=== PATIENT | male | born 1955 | race Caucasian/White ===

== ENCOUNTER 2022-08-28 10:33 | Emergency (ER) | payer OTHER, SELFPAY ==
--- OUTSIDE RECORDS SUMMARY | 2022-08-28 10:37 | XMS REPORT | Continuity of Care Document ---
:1955 Author Organization [facility] t Address [address] [place] [address] Care Team Providers Name Role Phone PCP, PATIENT DOES NOT HAVE A Primary Care Physician Unavaila Rossana Chao DO Attending Clinician Vinod MCKEON, Cameron Mitchell Attending Clinician Karen MCKEON, Clarissa Mcnamara Attending Clinician [phone] Kala MCKEON, Cipriano Velazco Attending Clinician [phone] López MCKEON, Car Wisdom Attending Clinician Tito MCKEON, Alex Attending Clinician Kimberley Gomes MA Attending Clinician Unavailable Rojas MCKEON, Jorge Frank Attending Clinician Laura Attending Clinician Unavailable Mustapha GOETZ, Sarah Attending Clinician Unavailable MASON EDMOND Attending Clinician Unavailable Only, Meng [facility] Test Attending Clinician Unavailable Unknown, Attending Attending Clinician Unavailable Doctor Unassigned, [place] Attending Clinician Unavailable JOSE CHRISTIANSON Attending Clinician Unavailable CLARISSA JONES Admitting Clinician Unavailable Laura Admitting Clinician Unavailable Payers Payer Name Policy Type Policy Number Effective Date Expiration Date S ource [place]: [id number] 2020 [employer] 00:00:00 ALLEGIANCE BENEFIT [id number] PLAN MGMT - FIRST INTERSTATE CLAIMS (PPO) MEDICARE PART A \T\ [id number] 2020 B 00:00:00 [place] [id number] 2014 (PPO) 00:00:00 Problems Condition Condition Condition Status Onset Resolution Last Treating Co mments Source Name Details Category Date Date Treatment Clinician Date Lower GI Lower GI Disease Active [facility] di bleed bleed 7-05 st 00:00: Hospita 00 l Benign Benign Problem Active [facility] prostatic Prostatic 3-16 Fami ly hyperplasi Hyperplasi 00:00: Pr actic a without a without 00 e outflow Outflow obstructio Obstructio n n Arthritis Arthritis Disease Active 2016-02 [facility] of knee, of knee, 2-12 st left left 00:00: Hospita 00 l Arthritis Arthritis Disease Active 2016-02 [facility]odi of knee, of knee, 2-12 st right right 00:00: Hospita 00 l 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-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 00:00: Hospita patellae patellae 00 l Diverticul Diverticul Disease Active 2015-02 M ethodi osis of osis of 1-16 st large large 00:00: Hospita intestine intestine 00 l without without hemorrhage hemorrhage 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 st Hospita l Colon Colon Disease Active [facility]i polyp polyp st Hospita l GERD GERD Disease Active Methodi (gastroeso (gastroeso st phageal phageal Hospita reflux reflux l disease) disease) Diverticul Diverticul Disease Active M ethodi itis of itis of st colon colon Hospita l Hiatal Hiatal Disease Active Methodi hernia hernia st Hospita l Diarrhea Diarrhea Disease Active Metho di [facility] Hospita l Allergies, Adverse Reactions, Alerts Allergy Allergy Status Severity Reaction(s) Onset Inactive Treating Comm ents Source Name Type Date Date Clinician NO KNOWN Drug Active Univers ALLERGIE Class ity of S [facility] Family History Family Member Diagnosis Comments Start Date Stop Date Source Natural father COPD [facility] Natural mother [facility] Social History Social Habit Start Date Stop Date Quantity Comments Source History of tobacco Current smoker [facility] Gender identity [facility] Sexual orientation [facility] Hospital Exposure to Yes University of SARS-CoV-2 (event) [facility] Alcohol intake 2022-08-26 2022-08-26 Current drinker [facility] 00:00:00 00:00:00 of alcohol Hospital (finding) History of Social 2022-08-26 2022-08-[address] function 00:00:00 00:00:00 Hospital Tobacco use and 2017-11-23 2017-11-23 Former smokeless Met [facility]ist exposure 00:00:00 00:00:00 tobacco user Hospital Sex Assigned At [birth year] [facility] 00:00:00 [facility]:00 Hospital Smoking Status Start Date Stop Date Source Never Smoker [facility] Family P jaquelin Unknown if ever smoked [facility] Ex-smoker 2017-11-23 00:00:00 2017-11-23 00:00:00 [facility] Medications Ordered Filled Start Stop Current Ordering Indication Dosage Frequency Signature Comments Components Source Medication Medication Date Date Medication? Clinician (SIG) Name Name ondansetron 2022- Yes 4mg Q8H Take 1 Met hodi (Zofran) 4 08-26 tablet (4 st MG tablet 00:00: 04:59 mg total) Ho spita 00 :00 by mouth l every 8 (eight) hours as needed for nausea or vomiting for up to 30 days. No known 2020-02 No Univers medications 2-20 ity of 17:29: [address] No known 2020-02 No Univers medications 2-20 ity of 17:29: [address] omeprazole 2017-02 Yes 40mg QD Take 1 Metho di (PriLOSEC) 0-[address] 40 MG 00:00: (40 mg Hospita capsule 00 total) by l mouth daily. triamcinolo triamcinolo No triamcinol Village ne ne one Family acetonide acetonide acetonide Practic 0.1 % 0.1 % 0.1 % e topical topical topical cream APPLY cream APPLY cream A THIN A THIN APPLY A LAYER TO LAYER TO THIN LAYER THE THE TO THE AFFECTED AFFECTED AFFECTED AREA(S) BY AREA(S) BY AREA(S) BY TOPICAL TOPICAL TOPICAL ROUTE 2 ROUTE 2 ROUTE 2 TIMES PER TIMES PER TIMES PER DAY DAY DAY Immunizations Ordered Immunization Filled Immunization Date Status Commen ts Source Name Name pneumococcal pneumococcal 2021-02-25 Completed [facility] Fa aislinn polysaccharide PPV23 polysaccharide PPV23 14:31:00 Practice pneumococcal pneumococcal 2021-02-25 Completed [facility] Fa aislinn polysaccharide PPV23 polysaccharide PPV23 14:31:00 Practice pneumococcal pneumococcal 2021-02-25 Completed [facility] Fa aislinn polysaccharide PPV23 polysaccharide PPV23 14:31:00 Practice pneumococcal pneumococcal 2021-02-25 [facility] PPV23 polysaccharide PPV23 14:31:00 Practice pneumococcal pneumococcal 2021-02-25 Completed [facility] Fa aislinn polysaccharide PPV23 polysaccharide PPV23 14:31:00 Practice Pneumococcal 2021-02-25 Completed [facility] Polysaccharide 00:00:00 [facility] COVID-19, mRNA, COVID-19, mRNA, 2020-05-21 Completed Vill age Family LNP-S, PF, 30 mcg/0.3 LNP-S, PF, 30 00:00:00 Practice mL dose mcg/0.3 mL dose (Pfizer-BioNTech) (Pfizer-BioNTech) COVID-19, mRNA, COVID-19, mRNA, 2020-05-19 Completed Vill age Family LNP-S, PF, 30 mcg/0.3 LNP-S, PF, 30 00:00:00 Practice mL dose mcg/0.3 mL dose (Pfizer-BioNTech) - (Pfizer-BioNTech) - ML ML COVID-19, mRNA, COVID-19, mRNA, 2020-05-19 Completed Vill age Family LNP-S, PF, 30 mcg/0.3 LNP-S, PF, 30 00:00:00 Practice mL dose mcg/0.3 mL dose (Pfizer-BioNTech) - (Pfizer-BioNTech) - ML ML COVID-19, mRNA, COVID-19, mRNA, 2020-05-19 Completed Vill age Family LNP-S, PF, 30 mcg/0.3 LNP-S, PF, 30 00:00:00 Practice mL dose mcg/0.3 mL dose (Pfizer-BioNTech) - (Pfizer-BioNTech) - ML ML COVID-19, mRNA, COVID-19, mRNA, 2020-05-19 Completed [facility] Family LNP-S, PF, 30 mcg/0.3 LNP-S, PF, 30 00:00:00 Practice mL dose mcg/0.3 mL dose (Pfizer-BioNTech) - (Pfizer-BioNTech) - ML ML PFIZER COVID-19 MRNA 2020-05-19 Completed [facility] VACCINATION 00:00:00 Hospital COVID-19, mRNA, COVID-19, mRNA, 2020-04-28 Completed [facility] Family LNP-S, PF, 30 mcg/0.3 LNP-S, PF, 30 00:00:00 Practice mL dose mcg/0.3 mL dose (Pfizer-BioNTech) - (Pfizer-BioNTech) - ML ML COVID-19, mRNA, COVID-19, mRNA, 2020-04-28 Completed [facility] Family LNP-S, PF, 30 mcg/0.3 LNP-S, PF, 30 00:00:00 Practice mL dose mcg/0.3 mL dose (Pfizer-BioNTech) - (Pfizer-BioNTech) - ML ML COVID-19, mRNA, COVID-19, mRNA, 2020-04-28 Completed Vill age Family LNP-S, PF, 30 mcg/0.3 LNP-S, PF, 30 00:00:00 Practice mL dose mcg/0.3 mL dose (Pfizer-BioNTech) - (Pfizer-BioNTech) - ML ML COVID-19, mRNA, COVID-19, mRNA, 2020-04-28 Completed [facility] Family LNP-S, PF, 30 mcg/0.3 LNP-S, PF, 30 00:00:00 Practice mL dose mcg/0.3 mL dose (Pfizer-BioNTech) - (Pfizer-BioNTech) - ML ML PFIZER COVID-19 MRNA 2020-04-28 Completed Meth odist VACCINATION 00:00:00 Hospital COVID-19, mRNA, COVID-19, mRNA, 2020-04-20 Completed Vill age Family LNP-S, PF, 30 mcg/0.3 LNP-S, PF, 30 00:00:00 Practice mL dose mcg/0.3 mL dose (Pfizer-BioNTech) (Pfizer-BioNTech) influenza, high-dose, influenza, 2020-01-31 Completed [facility] Family quadrivalent high-dose, 00:00:00 Practice quadrivalent influenza, high-dose, influenza, 2020-01-31 Completed [facility] quadrivalent high-dose, 00:00:00 Practice quadrivalent influenza, high-dose, influenza, 2020-01-31 Completed [facility] Family quadrivalent high-dose, 00:00:00 Practice quadrivalent influenza, high-dose, influenza, 2020-01-31 Completed [facility] quadrivalent high-dose, 00:00:00 Practice quadrivalent influenza, high-dose, influenza, 2020-01-31 Completed [facility] Family quadrivalent high-dose, 00:00:00 Practice quadrivalent influenza, seasonal, influenza, seasonal, 2019-01-25 Completed [facility] injectable injectable 00:00:00 Practice influenza, seasonal, influenza, seasonal, 2019-01-25 Completed [facility] injectable injectable 00:00:00 Practice influenza, seasonal, influenza, seasonal, 2019-01-25 Completed [facility] injectable injectable 00:00:00 Practice influenza, seasonal, influenza, seasonal, 2019-01-25 Completed [facility] injectable injectable 00:00:00 Practice influenza, seasonal, influenza, seasonal, 2019-01-25 Completed [facility] injectable injectable 00:00:00 Practice influenza, seasonal, influenza, seasonal, 2017-01-06 Completed [facility] injectable injectable 00:00:00 Practice influenza, seasonal, influenza, seasonal, 2017-01-06 Completed [facility] injectable injectable 00:00:00 Practice influenza, seasonal, influenza, seasonal, 2017-01-06 Completed [facility] injectable injectable 00:00:00 Practice influenza, seasonal, influenza, seasonal, 2017-01-06 Completed [facility] injectable injectable 00:00:00 Practice influenza, seasonal, influenza, seasonal, 2017-01-06 Completed [facility] injectable injectable 00:00:00 Practice influenza, seasonal, influenza, seasonal, 2015-12-10 Completed [facility] injectable injectable 00:00:00 Practice influenza, seasonal, influenza, seasonal, 2015-12-10 Completed [facility] injectable injectable 00:00:00 Practice influenza, seasonal, influenza, seasonal, 2015-12-10 Completed [facility] injectable injectable 00:00:00 Practice influenza, seasonal, influenza, seasonal, 2015-12-10 Completed [facility] injectable injectable 00:00:00 Practice influenza, seasonal, influenza, seasonal, 2015-12-10 Completed [facility] injectable injectable 00:00:00 Practice influenza, seasonal, influenza, seasonal, 2014-11-27 Completed [facility] injectable injectable 00:00:00 Practice influenza, seasonal, influenza, seasonal, 2014-11-27 Completed [facility] injectable injectable 00:00:00 Practice influenza, seasonal, influenza, seasonal, 2014-11-27 Completed [facility] injectable injectable 00:00:00 Practice influenza, seasonal, influenza, seasonal, 2014-11-27 Completed [facility] injectable injectable 00:00:00 Practice influenza, seasonal, influenza, seasonal, 2014-11-27 Completed [facility] injectable injectable 00:00:00 Practice influenza, seasonal, influenza, seasonal, 2013-11-28 Completed [facility] injectable injectable 00:00:00 Practice Tdap Tdap 2013-11-28 Completed [facility] 00:00:00 Practice influenza, seasonal, influenza, seasonal, 2013-11-28 Completed [facility] injectable injectable 00:00:00 Practice Tdap Tdap 2013-11-28 Completed [facility] 00:00:00 Practice influenza, seasonal, influenza, seasonal, 2013-11-28 Completed [facility] injectable injectable 00:00:00 Practice Tdap Tdap 2013-11-28 Completed [facility] 00:00:00 Practice influenza, seasonal, influenza, seasonal, 2013-11-28 Completed [facility] injectable injectable 00:00:00 Practice Tdap Tdap 2013-11-28 Completed [facility] 00:00:00 Practice influenza, seasonal, influenza, seasonal, 2013-11-28 Completed [facility] injectable injectable 00:00:00 Practice Tdap Tdap 2013-11-28 Completed [facility] 00:00:00 Practice zoster live zoster live 2012-11-16 Completed [facility] F[facility] ly 00:00:00 Practice zoster live zoster live 2012-11-16 Completed [facility] Fami ly 00:00:00 Practice zoster live zoster live 2012-11-16 Completed [facility] Fami ly 00:00:00 Practice zoster live zoster live 2012-11-16 Completed [facility] Fami ly 00:00:00 Practice zoster live zoster live 2012-11-16 Completed [facility] Fami ly 00:00:00 Practice Vital Signs Vital Name Observation Time Observation Value Comments Source BP Diastolic 2022-05-11 00:00:00 82 mm[Hg] [facility] Practice Height 2022-05-11 00:00:00 68 [in_i] [facility] Practice BMI (Body Mass 2022-05-11 00:00:00 28 kg/m2 [facility] Family Index) Practice BP Systolic 2022-05-11 00:00:00 136 mm[Hg] [facility] Body Weight 2022-05-11 00:00:00 184 [lb_av] [facility] Practice BP Diastolic 2021-02-25 00:00:00 72 mm[Hg] [facility] Practice Height 2021-02-25 00:00:00 68 [in_i] [facility] Practice BMI (Body Mass 2021-02-25 00:00:00 28 kg/m2 [facility] e Family Index) Practice BP Systolic 2021-02-25 00:00:00 116 mm[Hg] [facility] Practice Body Weight 2021-02-25 00:00:00 184 [lb_av] [facility] Practice BP Diastolic 2021-02-18 00:00:00 72 mm[Hg] [facility] Practice Height 2021-02-18 00:00:00 68 [in_i] [facility] Practice BMI (Body Mass 2021-02-18 00:00:00 26.7 kg/m2 [facility] e Family Index) Practice BP Systolic 2021-02-18 00:00:00 124 mm[Hg] [facility] Body Weight 2021-02-18 00:00:00 175.4 [lb_av] [facility] Practice Systolic blood 2022-08-26 20:46:09 119 mm[Hg] [facility] pressure Diastolic blood 2022-08-26 20:46:09 66 mm[Hg] [facility] pressure Heart rate 2022-08-26 20:46:09 61 /min [facility] Body temperature 2022-08-26 20:46:09 36.06 Bettie [facility] Respiratory rate 2022-08-26 20:46:09 18 /min [facility] Oxygen saturation in 2022-08-26 20:46:09 98 /min [facility] Arterial blood by Pulse oximetry Body weight 2022-08-25 02:02:07 80.015 kg [facility] BMI 2022-08-25 02:02:07 26.82 kg/m2 [facility] Body height 2022-08-22 19:12:00 172.7 cm [facility] Procedures Procedure Date / Time Performing Clinician Source Performed POC GLUCOSE 2022-08-26 22:29:00 Clarissa Jones [facility] N. HEMOGLOBIN & HEMATOCRIT 2022-08-26 21:34:00 [facility] N. HEMOGLOBIN & HEMATOCRIT 2022-08-26 14:12:00 [facility] N. POC GLUCOSE 2022-08-26 13:29:00 [facility] N. POC GLUCOSE 2022-08-26 09:21:00 [facility] N. CBC WITH PLATELET AND 2022-08-26 08:23:00 [facility] DIFFERENTIAL N. BASIC METABOLIC PANEL 2022-08-26 08:23:00 [facility] N. ESTIMATED GFR 2022-08-26 08:23:00 [facility] N. HEMOGLOBIN & HEMATOCRIT 2022-08-26 05:08:00 [facility] N. POC GLUCOSE 2022-08-26 04:11:00 [facility] N. HEMOGLOBIN & HEMATOCRIT 2022-08-25 22:37:00 [facility] N. POC GLUCOSE 2022-08-25 22:04:00 [facility] N. POC GLUCOSE 2022-08-25 17:24:00 [facility] N. HEMOGLOBIN & HEMATOCRIT 2022-08-25 15:57:00 [facility] N. POC GLUCOSE 2022-08-25 14:05:00 [facility] N. POC GLUCOSE 2022-08-25 09:16:00 [facility] N. CBC WITH PLATELET AND 2022-08-25 09:08:00 [facility] DIFFERENTIAL N. BASIC METABOLIC PANEL 2022-08-25 09:08:00 [facility] N. ESTIMATED GFR 2022-08-25 09:08[facility] P[facility]SE 2022-08-25 06:17:00 [facility] N. POC GLUCOSE 2022-08-25 03:36:00 [facility] N. CBC WITH PLATELET AND 2022-08-25 02:46:00 [facility] DIFFERENTIAL N. COMPREHENSIVE METABOLIC 2022-08-24 19:44:00 [facility] PANEL CBC WITH PLATELET AND 2022-08-24 19:44:00 [facility] DIFFERENTIAL TYPE AND SCREEN 2022-08-24 19:44:00 [facility] spital ESTIMATED GFR 2022-08-24 19:44:00 [facility] spital CTA ABD/PEL FOR BLEEDING 2022-08-22 23:53:29 [facility] ABO AND RH CONFIRMATION 2022-08-22 23:38:00 [facility] BY PROTOCOL PROTHROMBIN TIME WITH INR 2022-08-22 21:07:00 [facility] PARTIAL THROMBOPLASTIN 2022-08-22 21:07:00 [facility] TIME (PTT) ECG 12-LEAD 2022-08-22 20:52:43 [facility] URINE CULTURE 2022-08-22 19:56:00 LoveChristopher machado [facility] CBC WITH PLATELET AND 2022-08-22 19:56:00 Christopher Love [facility] DIFFERENTIAL COMPREHENSIVE METABOLIC 2022-08-22 19:56:00 LoveChristopher hoyos [facility] PANEL LIPASE LEVEL 2022-08-22 19:56:00 [facility] URINALYSIS SCREEN AND 2022-08-22 19:56:00 Christopher Love [facility] MICROSCOPY, WITH REFLEX TO CULTURE TYPE AND SCREEN 2022-08-22 19:56:00 LoveChristopher hoyos [facility] ESTIMATED GFR 2022-08-22 19:56:00 Christopher Love [facility] ECG ED PRELIMINARY 2022-08-22 19:42:52 Jorge Xie [facility] INTERPRETATION Plan of Care Planned Activity Planned Date Details Comments Source Future Scheduled Test 2022-08-26 Screening for [facility] 09:51:53 malignant neoplasm of Hospit al colon (procedure) [code = 175559050] Future Scheduled Test 2022-08-26 Screening for [facility] 09:51:53 malignant neoplasm of Hospit al colon (procedure) [code = 756487296] Future Scheduled Test 2022-08-26 Screening for [facility] 09:51:53 malignant neoplasm of Hospit al colon (procedure) [code = 913418625] Future Scheduled Test 2022-08-26 Hepatitis C screening [facility] 09:51:53 (procedure) [code = Hospital 577068419] Future Scheduled Test 2022-08-26 Screening for [facility] 09:51:53 malignant neoplasm of Hospit al colon (procedure) [code = 786801289] Future Scheduled Test 2022-08-26 Screening for [facility] 09:51:53 malignant neoplasm of Hospit al colon (procedure) [code = 361704324] Future Scheduled Test 2022-08-26 SHINGLES VACCINES (2 [facility] 09:51:53 of 3) [code = SHINGLES Hospi julio VACCINES (2 of 3)] Future Scheduled Test 2022-08-26 COVID-19 VACCINE (3 - [facility] 09:51:53 Pfizer series) [code = Hospi julio COVID-19 VACCINE (3 - Pfizer series)] Future Scheduled Test 2022-08-26 65+ PNEUMOCOCCAL [facility] 09:51:53 VACCINE (2 - PCV) Hospital [code = 65+ PNEUMOCOCCAL VACCINE (2 - PCV)] Future Scheduled Test 2022-08-26 INFLUENZA VACCINE M ethodist 09:51:53 [code = INFLUENZA Hospital VACCINE] Diagnostic Test 2022-05-11 CMP, serum or plasma [facility] Family Pending 00:00:00 [code = CMP, serum or Practi ce plasma] Diagnostic Test 2022-05-11 CBC w/ auto diff [code Vi llage Family Pending 00:00:00 = CBC w/ auto diff] Practice Diagnostic Test 2022-05-11 lipid panel, serum Villag e Family Pending 00:00:00 [code = lipid panel, Practic e serum] Diagnostic Test 2022-05-11 PSA, serum or plasma [facility] Family Pending 00:00:00 [code = PSA, serum or Practi ce plasma] Diagnostic Test 2022-05-11 urinalysis, complete [facility] Family Pending 00:00:00 [code = urinalysis, Practice complete] Diagnostic Test 2022-05-11 erythrocyte [facility] Fami ly Pending 00:00:00 sedimentation rate by Practi ce westergren method [code = erythrocyte sedimentation rate by westergren method] Future Appointment 2023-05-12 Asim Hearn, [address] [facility] 00:00:00 [address] [place] [address] [address]; Practice [address], [place] [address] Instructions [facility] Practice Encounters Start End Encounter Admission Attending Care Care Encounter Source Date/Time Date/Time Type Type Clinicians Facility Department ID 2022-08-24 2022-08-26 Emergency Rossana Pérez [id number] Methodi 13:50:00 19:48:00 Cameron Brock [id number] 0 50 Clarissa Jones 3.430.2.7 Hospita .3.830177 l .8 2022-08-26 2022-08-26 Surgery Kala, 1.2.840.1 [id number] Methodi 10:00:00 11:00:00 Cipriano [id number] [address] [facility] 3.430.2.7 Hospit a .3.079367 l .8 2022-08-26 2022-08-26 Anesthesia Dawn, 1.2.840.1 [id number] Methodi 09:54:00 10:41:00 Event Car Wisdom [id number] 3.430.2.7 Hospit a .3.680279 l .8 2022-08-24 2022-08-26 Outpatient KAREN [facility] [id number] [place] 00:00:00 00:00:00 CHINONYEREM [address] 2022-08-24 2022-08-24 Orders Tito, 1.2.840.1 [id number] Methodi 00:00:00 00:00:00 Only Alex [address]62.1.[address] 3.430.2.7 Hospit a .3.157886 l .8 2022-08-24 2022-08-24 Telephone Eliseo, 1.2.840.1 [id number] Methodi 00:00:00 00:00:[address] 3.430.2.7 Hospit a .3.780442 l .8 2022-08-22 2022-08-22 Emergency Xie, 1.2.840.1 [id number] Methodi 14:13:00 20:13:[id number] Zac 3.430.2.7 Hospit a .3.090570 l .8 2022-08-22 2022-08-22 Emergency [facility] [id number] [place] [address] 00:00:00 00:00:[address] JORGE [address] 2022-07-12 2022-07-12 Outpatient Nief[facility]_S_ VFP VFP [id number] 00:00:00 00:00:00 RENUKA [id number] Family Practic e 2022-05-11 2022-05-11 Outpatient Nief[place]_S VFP VFP [address] 00:00:00 00:00:00 [id number] Family Practic e 2022-05-11 2022-05-11 Asim VFP [place] - [id number] V illage 00:00:00 00:00:00 Gerald [facility], Medical - Prac tic : [address] [place] - [place] [address] [place] [address] maribel French In [address], [place] [address] , Ph. 2021-07-14 2021-07-14 Outpatient [place]ief[place]_S VFP VFP [address] 00:00:00 00:00:00 [id number] Family Practic e 2021-07-14 2021-07-14 Outpatient Niefield_S VFP VFP 1617 913-20 [facility] 00:00:00 00:00:00 [id number] Family Practic e 2021-03-25 2021-03-25 Outpatient Nief[place]_S VFP VFP 1617 913-20 [facility] 01:07:00 01:07:00 [id number] Family Practic e 2021-03-04 2021-03-04 Outpatient Nief[place]_S VFP VFP 1617 913-20 [facility] 12:48:00 12:48:00 [id number] Family Practic e 2021-03-01 2021-03-01 Outpatient Nief[place]_S VFP VFP [id number] [id number] [facility] 05:23:00 05:23:00 [id number] Family Practic e 2021-03-01 2021-03-01 Outpatient Nief[place]_S VFP VFP [id number] [id number] [facility] 05:23:00 05:23:00 [id number] Family Practic e 2021-02-25 2021-02-25 Outpatient Nief[place]_S VFP VFP [id number] [id number] [facility] 02:27:00 02:27:00 [id number] Family Practic e 2021-02-25 2021-02-25 Asim VFP [place] - [id number] V illage 00:00:00 00:00:00 [facility], Medical - Prac tic MD: [address] [place] - [place] VM_[address] maribel French In [address], [place] [address] , Ph. 2021-02-18 2021-02-18 Outpatient Niefield_S VFP VFP 1617 913-20 [facility] 04:42:00 04:42:00 [id number] Family Practic e 2021-02-18 2021-02-18 Asim VFP [place] - [id number] V illage 00:00:00 00:00:00 [facility], Medical - Prac tic MD: 0792 [place] - e [address] [place] VM_[address] maribel French In [address], [place] [address] , Ph. 2021-02-10 2021-02-10 Telephone RHONDA Luciano [id number] Univers 00:00:00 00:00:00 Sarah JARQUIN 350.1.13.10 it y of [facility] 4.2.7.2.686 Pradeep as [phone] [facility] [address] 2021-02-08 2021-02-08 Outpatient Elliot [facility] 005 [id number] Univers 17:00:00 18:10:04 ity of [facility] 2021-02-08 2021-02-08 Laboratory Only, Meng Uc Test CARLOS 1.2.8 40.114 [id number] Univers 17:00:00 17:15:00 Only Unknown, Attending PEDIATRIC 350.1.13. 10 [place] [id number] [facility] PRIMARY [facility] CARE [facility]IC 2021-02-08 2021-02-08 Letter Doctor RHONDA [id number] Univers 00:00:00 00:00:00 (Out) Unassigned, MILKA 350.1.13.10 ity of [place] [facility] 4.2.7.2.686 Pradeep as [phone] [facility] [address] 2020-07-25 2020-07-25 Outpatient [place]_S VFP VFP [id number] [facility] 10:42:00 10:42:00 [id number] Family Practic e 2020-05-19 2020-05-19 Outpatient MEGHAN [facility] [id number] [address] [place] 00:00:00 00:00:00 JOSE Dubose [address] 2020-04-28 2020-04-28 Outpatient [facility] [id number] [address] [place] 00:00:00 00:00:[address] Results Test Description Test Time Test Comments Results Result Comments Source POC glucose 2022-08-26 22:30:00 Test Item Value Reference Range Interpretation Comme nts POC glucose (test code = 91 mg/dL 65-99 Ope rator Name: Amber Diop ID: [id number]) [id number] able: [facility] [id number] 21:30:47 Test Item Value Reference Range Interpretation Comments Ventricular rate (test 57 code = 253) Atrial rate (test code = 57 255) MI interval (test code = 204 266) QRSD interval (test code 76 = 260) QT interval (test code = 418 264) QTC interval (test code = 406 265) P axis 1 (test code = 26 267) QRS axis 1 (test code = 43 268) T wave axis (test code = 65 270) EKG impression (test code Sinus = 273) bradycardia-Electron ically Signed By Matt Castillo MDam ([id number]) on 08/22/2022 4:30:44 [facility] [id number] 20:32:00 Test Item Value Reference Range Interpretation Comments Urine culture (test SEE COMMENT Bacteriu robert screen code = 8144492) negative. [facility] ED Preliminary Interpretation - Not an [id number] 19:42:52 Test Item Value Reference Range Interpretation Comments OSIEL (test code = OSIEL) Jorge Xie MD 08/24/2022 9:06 [facility] ED Preliminary Interpretation - Not an Order Performed by: Jorge Xie MDAuthorized by: Jorge Xei MD ECG reviewed by ED Physician in the absence of a electrical engineering professor: yes Interpretation: Interpretation: abnormal Rate: ECG rate: 57 ECG rate assessment: bradycardic Rhythm: Rhythm: sinus bradycardia Ectopy: Ectopy: none QRS: QRS axis: Normal QRS intervals: NormalConduction: Conduction: normal ST segments: ST segments: NormalT waves: T waves: normal Comments: Not a STEMI Lab Interpretation Abnormal (test code = 94791-0) [facility] [id number] 16:12:00 Test Item Value Reference Range Interpretation Comments request problem (test code = request comment problem) [facility] [id number] 16:12:00 Test Item Value Reference Range Interpretation Comments request problem (test code = request comment problem) [facility] [id number] 16:12:00 Test Item Value Reference Range Interpretation Comments request problem (test code = request comment problem) [facility], [id number] 00:07:00 Test Item Value Reference Range Interpretation Comments WBC (test code = WBC) none seen 0-5 RBC (test code = RBC) none seen 0-2 epithelial cells (non renal) (test none seen 0-10 code = epithelial cells (non renal)) epithelial cells (renal) (test code comment = epithelial cells (renal)) casts (test code = casts) none seen none seen cast type (test code = cast type) comment crystals (test code = crystals) comment crystal type (test code = crystal comment type) mucus threads (test code = mucus comment threads) bacteria (test code = bacteria) none seen none seen/few yeast (test code = yeast) comment trichomonas (test code = comment trichomonas) comment (test code = comment) comment [facility], [id number] 00:07:00 Test Item Value Reference Range Interpretation Comments WBC (test code = WBC) none seen 0-5 RBC (test code = RBC) none seen 0-2 epithelial cells (non renal) (test none seen 0-10 code = epithelial cells (non renal)) epithelial cells (renal) (test code comment = epithelial cells (renal)) casts (test code = casts) none seen none seen cast type (test code = cast type) comment crystals (test code = crystals) comment crystal type (test code = crystal comment type) mucus threads (test code = mucus comment threads) bacteria (test code = bacteria) none seen none seen/few yeast (test code = yeast) comment trichomonas (test code = comment trichomonas) comment (test code = comment) comment [facility], [id number] 00:07:00 Test Item Value Reference Range Interpretation Comments WBC (test code = WBC) none seen 0-5 RBC (test code = RBC) none seen 0-2 epithelial cells (non renal) (test none seen 0-10 code = epithelial cells (non renal)) epithelial cells (renal) (test code comment = epithelial cells (renal)) casts (test code = casts) none seen none seen cast type (test code = cast type) comment crystals (test code = crystals) comment crystal type (test code = crystal comment type) mucus threads (test code = mucus comment threads) bacteria (test code = bacteria) none seen none seen/few yeast (test code = yeast) comment trichomonas (test code = comment trichomonas) comment (test code = comment) comment [facility] complete panel - [id number] 00:00:00 Test Item Value Reference Range Interpretation Comments specific gravity (test code = 1.012 1.005-1.030 specific gravity) pH (test code = pH) 6.0 5.0-7.5 urine-color (test code = yellow yellow urine-color) appearance (test code = appearance) clear clear WBC esterase (test code = WBC negative negative esterase) protein (test code = protein) negative negative/trace glucose (test code = glucose) negative negative ketones (test code = ketones) trace negative A occult blood (test code = occult negative negative blood) bilirubin (test code = bilirubin) negative negative urobilinogen,semi-qn (test code = 0.2 mg/dL 0.2-1.0 urobilinogen,semi-qn) nitrite, urine (test code = negative negative nitrite, urine) microscopic examination (test code = microscopic examination) [facility] Differential panel - [id number] 00:00:00 Test Item Value Reference Range Interpretation Comments WBC (test code = WBC) 8.10 x10*3/?L 4.00-11.00 RBC (test code = RBC) 5.13 10*12/L 4.63-6.08 hemoglobin (test code = 15.80 g/dL 13.70-17.50 hemoglobin) hematocrit (test code = 47.1 % 40.1-51.0 hematocrit) MCV (test code = MCV) 91.8 fL 80.0-100.0 MCH (test code = MCH) 30.8 pg 25.7-32.2 MCHC (test code = MCHC) 33.5 g/dL 32.3-36.5 RDW-SD (test code = RDW-SD) 43.8 fL 35.1-43.9 platelet count (test code = 261.0 k/uL 150.0-400.0 platelet count) MPV (test code = MPV) 8.7 fL 7.5-11.5 neut% (test code = neut%) 56.3 % 34.0-67.9 lymph% (test code = lymph%) 33.5 % 21.8-53.1 mon% (test code = mon%) 8.5 % 5.3-12.2 eos% (test code = eos%) 1.0 % 0.8-7.0 baso% (test code = baso%) 0.5 % 0.2-1.2 neut# (test code = neut#) 4.6 x10*3/?L 1.8-5.4 lymph# (test code = lymph#) 2.7 x10*3/?L 1.3-3.6 mon# (test code = mon#) 0.7 x10*3/?L 0.3-0.8 eos# (test code = eos#) 0.08 x10*3/?L 0.04-0.54 baso# (test code = baso#) 0.04 x10*3/?L 0.01-0.08 [facility]Ery[facility] sedimentation rate by Westergren method 2022-05-12 00:00:00 Test Item Value Reference Range Interpretation Comments sedimentation rate-westergren (test comment code = sedimentation rate-westergren) [facility] panel - Serum or [id number] 00:00:00 Test Item Value Reference Range Interpretation Comments HDL (test code = HDL) 55 mg/dL triglyceride (test code = 71 mg/dL <150 triglyceride) VLDL (calculated) (test code = VLDL 14 mg/dL (calculated)) cholesterol/HDL ratio (test code = 3.3 mg/dL cholesterol/HDL ratio) non-HDL cholesterol (calculated) 126 mg/dL <160 (test code = non-HDL cholesterol (calculated)) cholesterol (test code = 181 mg/dL <200 cholesterol) Cholesterol in LDL [Mass/volume] in 112 mg/dL <130 Serum or Plasma (test code = 2089-1) [facility] 1999 [facility] - Serum or Plasma 2022-05-12 00:00:00 Test Item Value Reference Range Interpretation Comments ALT (test code = ALT) 15 U/L 0-55 AST (test code = AST) 18 U/L 5-34 BUN (test code = BUN) 12.1 mg/dL 8.4-25.0 alk phos (test code = alk phos) 124 unit/L 40-150 glucose (test code = glucose) 74 mg/dL 70-99 albumin (test code = albumin) 4.5 g/dL 3.4-5.1 creatinine (test code = 0.93 mg/dL 0.72-1.25 creatinine) eGFR (test code = eGFR) >60 total bilirubin (test code = 0.8 mg/dL 0.2-1.2 total bilirubin) sodium (test code = sodium) 143 mEq/L 135-145 potassium (test code = potassium) 4.4 mEq/L 3.5-5.3 chloride (test code = chloride) 104 mmol/L 98-110 total protein (test code = total 7.4 g/dL 6.1-8.2 protein) calcium (test code = calcium) 9.8 mg/dL 8.8-10.2 CO2 (test code = CO2) 25.3 mmol/L 20.0-32.0 anion gap (test code = anion gap) 14 calc [facility]PS[facility], serum or [id number] 00:00:00 Test Item Value Reference Range Interpretation Comments PSA, total (test code = PSA, 1.23 NG/mL <4.00 total) [facility] complete panel - [id number] 00:00:00 Test Item Value Reference Range Interpretation Comments specific gravity (test code = 1.012 1.005-1.030 specific gravity) pH (test code = pH) 6.0 5.0-7.5 urine-color (test code = yellow yellow urine-color) appearance (test code = appearance) clear clear WBC esterase (test code = WBC negative negative esterase) protein (test code = protein) negative negative/trace glucose (test code = glucose) negative negative ketones (test code = ketones) trace negative A occult blood (test code = occult negative negative blood) bilirubin (test code = bilirubin) negative negative urobilinogen,semi-qn (test code = 0.2 mg/dL 0.2-1.0 urobilinogen,semi-qn) nitrite, urine (test code = negative negative nitrite, urine) microscopic examination (test code = microscopic examination) [facility]CB W Auto Differential panel - [id number] 00:00:00 Test Item Value Reference Range Interpretation Comments WBC (test code = WBC) 8.10 x10*3/?L 4.00-11.00 RBC (test code = RBC) 5.13 10*12/L 4.63-6.08 hemoglobin (test code = 15.80 g/dL 13.70-17.50 hemoglobin) hematocrit (test code = 47.1 % 40.1-51.0 hematocrit) MCV (test code = MCV) 91.8 fL 80.0-100.0 MCH (test code = MCH) 30.8 pg 25.7-32.2 MCHC (test code = MCHC) 33.5 g/dL 32.3-36.5 RDW-SD (test code = RDW-SD) 43.8 fL 35.1-43.9 platelet count (test code = 261.0 k/uL 150.0-400.0 platelet count) MPV (test code = MPV) 8.7 fL 7.5-11.5 neut% (test code = neut%) 56.3 % 34.0-67.9 lymph% (test code = lymph%) 33.5 % 21.8-53.1 mon% (test code = mon%) 8.5 % 5.3-12.2 eos% (test code = eos%) 1.0 % 0.8-7.0 baso% (test code = baso%) 0.5 % 0.2-1.2 neut# (test code = neut#) 4.6 x10*3/?L 1.8-5.4 lymph# (test code = lymph#) 2.7 x10*3/?L 1.3-3.6 mon# (test code = mon#) 0.7 x10*3/?L 0.3-0.8 eos# (test code = eos#) 0.08 x10*3/?L 0.04-0.54 baso# (test code = baso#) 0.04 x10*3/?L 0.01-0.08 [facility] sedimentation rate by Westergren method 2022-05-12 00:00:00 Test Item Value Reference Range Interpretation Comments sedimentation rate-westergren (test comment code = sedimentation rate-westergren) [facility] panel - Serum or [id number] 00:00:00 Test Item Value Reference Range Interpretation Comments HDL (test code = HDL) 55 mg/dL triglyceride (test code = 71 mg/dL <150 triglyceride) VLDL (calculated) (test code = VLDL 14 mg/dL (calculated)) cholesterol/HDL ratio (test code = 3.3 mg/dL cholesterol/HDL ratio) non-HDL cholesterol (calculated) 126 mg/dL <160 (test code = non-HDL cholesterol (calculated)) cholesterol (test code = 181 mg/dL <200 cholesterol) Cholesterol in LDL [Mass/volume] in 112 mg/dL <130 Serum or Plasma (test code = 2089-1) [facility] 2000 panel - Serum or Plasma 2022-05-12 00:00:00 Test Item Value Reference Range Interpretation Comments ALT (test code = ALT) 15 U/L 0-55 AST (test code = AST) 18 U/L 5-34 BUN (test code = BUN) 12.1 mg/dL 8.4-25.0 alk phos (test code = alk phos) 124 unit/L 40-150 glucose (test code = glucose) 74 mg/dL 70-99 albumin (test code = albumin) 4.5 g/dL 3.4-5.1 creatinine (test code = 0.93 mg/dL 0.72-1.25 creatinine) eGFR (test code = eGFR) >60 total bilirubin (test code = 0.8 mg/dL 0.2-1.2 total bilirubin) sodium (test code = sodium) 143 mEq/L 135-145 potassium (test code = potassium) 4.4 mEq/L 3.5-5.3 chloride (test code = chloride) 104 mmol/L 98-110 total protein (test code = total 7.4 g/dL 6.1-8.2 protein) calcium (test code = calcium) 9.8 mg/dL 8.8-10.2 CO2 (test code = CO2) 25.3 mmol/L 20.0-32.0 anion gap (test code = anion gap) 14 calc [facility]PS[facility], serum or [id number] 00:00:00 Test Item Value Reference Range Interpretation Comments PSA, total (test code = PSA, 1.23 NG/mL <4.00 total) [facility] HospitalUrinalysis complete panel - [id number] 00:00:00 Test Item Value Reference Range Interpretation Comments specific gravity (test code = 1.012 1.005-1.030 specific gravity) pH (test code = pH) 6.0 5.0-7.5 urine-color (test code = yellow yellow urine-color) appearance (test code = appearance) clear clear WBC esterase (test code = WBC negative negative esterase) protein (test code = protein) negative negative/trace glucose (test code = glucose) negative negative ketones (test code = ketones) trace negative A occult blood (test code = occult negative negative blood) bilirubin (test code = bilirubin) negative negative urobilinogen,semi-qn (test code = 0.2 mg/dL 0.2-1.0 urobilinogen,semi-qn) nitrite, urine (test code = negative negative nitrite, urine) microscopic examination (test code = microscopic examination) [facility] W Auto Differential panel - [id number] 00:00:00 Test Item Value Reference Range Interpretation Comments WBC (test code = WBC) 8.10 x10*3/?L 4.00-11.00 RBC (test code = RBC) 5.13 10*12/L 4.63-6.08 hemoglobin (test code = 15.80 g/dL 13.70-17.50 hemoglobin) hematocrit (test code = 47.1 % 40.1-51.0 hematocrit) MCV (test code = MCV) 91.8 fL 80.0-100.0 MCH (test code = MCH) 30.8 pg 25.7-32.2 MCHC (test code = MCHC) 33.5 g/dL 32.3-36.5 RDW-SD (test code = RDW-SD) 43.8 fL 35.1-43.9 platelet count (test code = 261.0 k/uL 150.0-400.0 platelet count) MPV (test code = MPV) 8.7 fL 7.5-11.5 neut% (test code = neut%) 56.3 % 34.0-67.9 lymph% (test code = lymph%) 33.5 % 21.8-53.1 mon% (test code = mon%) 8.5 % 5.3-12.2 eos% (test code = eos%) 1.0 % 0.8-7.0 baso% (test code = baso%) 0.5 % 0.2-1.2 neut# (test code = neut#) 4.6 x10*3/?L 1.8-5.4 lymph# (test code = lymph#) 2.7 x10*3/?L 1.3-3.6 mon# (test code = mon#) 0.7 x10*3/?L 0.3-0.8 eos# (test code = eos#) 0.08 x10*3/?L 0.04-0.54 baso# (test code = baso#) 0.04 x10*3/?L 0.01-0.08 [facility] sedimentation rate by Westergren method 2022-05-12 00:00:00 Test Item Value Reference Range Interpretation Comments sedimentation rate-westergren (test comment code = sedimentation rate-westergren) [facility] 1995 panel - Serum or [id number] 00:00:00 Test Item Value Reference Range Interpretation Comments HDL (test code = HDL) 55 mg/dL triglyceride (test code = 71 mg/dL <150 triglyceride) VLDL (calculated) (test code = VLDL 14 mg/dL (calculated)) cholesterol/HDL ratio (test code = 3.3 mg/dL cholesterol/HDL ratio) non-HDL cholesterol (calculated) 126 mg/dL <160 (test code = non-HDL cholesterol (calculated)) cholesterol (test code = 181 mg/dL <200 cholesterol) Cholesterol in LDL [Mass/volume] in 112 mg/dL <130 Serum or Plasma (test code = 2089-1) [facility] 1999 panel - Serum or Plasma 2022-05-12 00:00:00 Test Item Value Reference Range Interpretation Comments ALT (test code = ALT) 15 U/L 0-55 AST (test code = AST) 18 U/L 5-34 BUN (test code = BUN) 12.1 mg/dL 8.4-25.0 alk phos (test code = alk phos) 124 unit/L 40-150 glucose (test code = glucose) 74 mg/dL 70-99 albumin (test code = albumin) 4.5 g/dL 3.4-5.1 creatinine (test code = 0.93 mg/dL 0.72-1.25 creatinine) eGFR (test code = eGFR) >60 total bilirubin (test code = 0.8 mg/dL 0.2-1.2 total bilirubin) sodium (test code = sodium) 143 mEq/L 135-145 potassium (test code = potassium) 4.4 mEq/L 3.5-5.3 chloride (test code = chloride) 104 mmol/L 98-110 total protein (test code = total 7.4 g/dL 6.1-8.2 protein) calcium (test code = calcium) 9.8 mg/dL 8.8-10.2 CO2 (test code = CO2) 25.3 mmol/L 20.0-32.0 anion gap (test code = anion gap) 14 calc [facility]PS[facility], serum or [id number] 00:00:00 Test Item Value Reference Range Interpretation Comments PSA, total (test code = PSA, 1.23 NG/mL <4.00 total) [facility] HospitalUr[facility] complete panel - [id number] 00:00:00 Test Item Value Reference Range Interpretation Comments color (test code = yellow yellow color) appearance (test code clear clear = appearance) specific gravity (test 1.018 1.001-1.035 code = specific gravity) pH (test code = pH) 6.0 5.0-8.0 glucose (test code = negative negative glucose) bilirubin (test code = negative negative bilirubin) ketones (test code = negative negative ketones) occult blood (test negative negative code = occult blood) protein (test code = negative negative protein) nitrite (test code = negative negative nitrite) leukocyte esterase negative negative (test code = leukocyte esterase) WBC (test code = WBC) none seen See_Comment [Auto mated message] The system Stadius generated this result transmitted ref erence range: < or = 5 . The reference range was not used to int erpret this result as normal/abnormal . RBC (test code = RBC) none seen See_Comment [Auto mated message] The system Stadius generated this result transmitted ref erence range: < or = 2 . The reference range was not used to int erpret this result as normal/abnormal . squamous epithelial none seen See_Comment [Automa godwin message] cells (test code = The syste m which squamous epithelial generate d this result cells) transmitted ref erence range: < or = 5 . The reference range was not used to int erpret this result as normal/abnormal . bacteria (test code = none seen none seen bacteria) hyaline cast (test none seen none seen code = hyaline cast) [facility] W Auto Differential panel - [id number] 00:00:00 Test Item Value Reference Range Interpretation Comments WBC (test code = WBC) 7.90 x10*3/?L 4.00-11.00 RBC (test code = RBC) 4.92 10*12/L 4.63-6.08 hemoglobin (test code = 14.90 g/dL 13.70-17.50 hemoglobin) hematocrit (test code = 45.4 % 40.1-51.0 hematocrit) MCV (test code = MCV) 92.3 fL 80.0-100.0 MCH (test code = MCH) 30.3 pg 25.7-32.2 MCHC (test code = MCHC) 32.8 g/dL 32.3-36.5 RDW-SD (test code = RDW-SD) 43.2 fL 35.1-43.9 platelet count (test code = 417.0 k/uL 150.0-400.0 H platelet count) MPV (test code = MPV) 8.8 fL 7.5-11.5 neut% (test code = neut%) 54.8 % 34.0-67.9 lymph% (test code = lymph%) 32.3 % 21.8-53.1 mon% (test code = mon%) 10.8 % 5.3-12.2 eos% (test code = eos%) 1.0 % 0.8-7.0 baso% (test code = baso%) 0.8 % 0.2-1.2 neut# (test code = neut#) 4.3 x10*3/?L 1.8-5.4 lymph# (test code = lymph#) 2.6 x10*3/?L 1.3-3.6 mon# (test code = mon#) 0.9 x10*3/?L 0.3-0.8 H eos# (test code = eos#) 0.08 x10*3/?L 0.04-0.54 baso# (test code = baso#) 0.06 x10*3/?L 0.01-0.08 [facility] 1999 panel - Serum or Plasma 2021-02-26 00:00:00 Test Item Value Reference Range Interpretation Comments ALT (test code = ALT) 15 U/L 0-55 AST (test code = AST) 13 U/L 5-34 BUN (test code = BUN) 15.1 mg/dL 8.4-25.0 alk phos (test code = alk phos) 133 unit/L 40-150 glucose (test code = glucose) 86 mg/dL 70-99 albumin (test code = albumin) 3.8 g/dL 3.4-5.1 creatinine (test code = 0.78 mg/dL 0.72-1.25 creatinine) eGFR non- (test >60 code = eGFR non-) total bilirubin (test code = 0.5 mg/dL 0.2-1.2 total bilirubin) eGFR - (test >60 code = eGFR - ) sodium (test code = sodium) 140 mEq/L 135-145 potassium (test code = potassium) 4.3 mEq/L 3.5-5.3 chloride (test code = chloride) 104 mmol/L 98-110 total protein (test code = total 7.0 g/dL 6.1-8.2 protein) calcium (test code = calcium) 9.4 mg/dL 8.8-10.2 CO2 (test code = CO2) 27.3 mmol/L 20.0-32.0 anion gap (test code = anion gap) 9 calc [facility] Practice[facility] - Serum or [id number] 00:00:00 Test Item Value Reference Range Interpretation Comments HDL (test code = HDL) 43 mg/dL triglyceride (test code = 86 mg/dL <150 triglyceride) VLDL (calculated) (test code = VLDL 17 mg/dL (calculated)) cholesterol/HDL ratio (test code = 3.4 mg/dL cholesterol/HDL ratio) non-HDL cholesterol (calculated) 102 mg/dL <160 (test code = non-HDL cholesterol (calculated)) cholesterol (test code = 145 mg/dL <200 cholesterol) Cholesterol in LDL [Mass/volume] in 85 mg/dL <130 Serum or Plasma (test code = 2089-1) [facility] HospitalThyrotropin [Units/volume] in Serum or [id number] 00:00:00 Test Item Value Reference Range Interpretation Comments TSH (test code = TSH) 2.764 uIU/mL 0.350-4.940 [facility], serum or [id number] 00:00:00 Test Item Value Reference Range Interpretation Comments PSA, total (test code = PSA, 1.14 NG/mL <4.00 total) [facility] HospitalHemoglobin A1c/Hemoglobin.total in [id number] 00:00:00 Test Item Value Reference Range Interpretation Comments Hemoglobin A1c/Hemoglobin.total in 5.3 % 1.0-5.7 Blood (test code = 4548-4) average blood glucose (calculation) 105 mg/dL (test code = average blood glucose (calculation)) [facility]Ur[facility] complete panel - [id number] 00:00:00 Test Item Value Reference Range Interpretation Comments color (test code = yellow yellow color) appearance (test code clear clear = appearance) specific gravity (test 1.018 1.001-1.035 code = specific gravity) pH (test code = pH) 6.0 5.0-8.0 glucose (test code = negative negative glucose) bilirubin (test code = negative negative bilirubin) ketones (test code = negative negative ketones) occult blood (test negative negative code = occult blood) protein (test code = negative negative protein) nitrite (test code = negative negative nitrite) leukocyte esterase negative negative (test code = leukocyte esterase) WBC (test code = WBC) none seen See_Comment [Auto mated message] The system Stad[employer] generated this result transmitted ref erence range: < or = 5 . The reference range was not used to int erpret this result as normal/abnormal . RBC (test code = RBC) none seen See_Comment [Auto mated message] The system Stad[employer] generated this result transmitted ref erence range: < or = 2 . The reference range was not used to int erpret this result as normal/abnormal . squamous epithelial none seen See_Comment [Automa godwin message] cells (test code = The syste m which squamous epithelial generate d this result cells) transmitted ref erence range: < or = 5 . The reference range was not used to int erpret this result as normal/abnormal . bacteria (test code = none seen none seen bacteria) hyaline cast (test none seen none seen code = hyaline cast) [facility] W Auto Differential panel - [id number] 00:00:00 Test Item Value Reference Range Interpretation Comments WBC (test code = WBC) 7.90 x10*3/?L 4.00-11.00 RBC (test code = RBC) 4.92 10*12/L 4.63-6.08 hemoglobin (test code = 14.90 g/dL 13.70-17.50 hemoglobin) hematocrit (test code = 45.4 % 40.1-51.0 hematocrit) MCV (test code = MCV) 92.3 fL 80.0-100.0 MCH (test code = MCH) 30.3 pg 25.7-32.2 MCHC (test code = MCHC) 32.8 g/dL 32.3-36.5 RDW-SD (test code = RDW-SD) 43.2 fL 35.1-43.9 platelet count (test code = 417.0 k/uL 150.0-400.0 H platelet count) MPV (test code = MPV) 8.8 fL 7.5-11.5 neut% (test code = neut%) 54.8 % 34.0-67.9 lymph% (test code = lymph%) 32.3 % 21.8-53.1 mon% (test code = mon%) 10.8 % 5.3-12.2 eos% (test code = eos%) 1.0 % 0.8-7.0 baso% (test code = baso%) 0.8 % 0.2-1.2 neut# (test code = neut#) 4.3 x10*3/?L 1.8-5.4 lymph# (test code = lymph#) 2.6 x10*3/?L 1.3-3.6 mon# (test code = mon#) 0.9 x10*3/?L 0.3-0.8 H eos# (test code = eos#) 0.08 x10*3/?L 0.04-0.54 baso# (test code = baso#) 0.06 x10*3/?L 0.01-0.[address] [facility] - Serum or Plasma 2021-02-26 00:00:00 Test Item Value Reference Range Interpretation Comments ALT (test code = ALT) 15 U/L 0-55 AST (test code = AST) 13 U/L 5-34 BUN (test code = BUN) 15.1 mg/dL 8.4-25.0 alk phos (test code = alk phos) 133 unit/L 40-150 glucose (test code = glucose) 86 mg/dL 70-99 albumin (test code = albumin) 3.8 g/dL 3.4-5.1 creatinine (test code = 0.78 mg/dL 0.72-1.25 creatinine) eGFR non- (test >60 code = eGFR non-) total bilirubin (test code = 0.5 mg/dL 0.2-1.2 total bilirubin) eGFR - (test >60 code = eGFR - ) sodium (test code = sodium) 140 mEq/L 135-145 potassium (test code = potassium) 4.3 mEq/L 3.5-5.3 chloride (test code = chloride) 104 mmol/L 98-110 total protein (test code = total 7.0 g/dL 6.1-8.2 protein) calcium (test code = calcium) 9.4 mg/dL 8.8-10.2 CO2 (test code = CO2) 27.3 mmol/L 20.0-32.0 anion gap (test code = anion gap) 9 calc [facility] - Serum or [id number] 00:00:00 Test Item Value Reference Range Interpretation Comments HDL (test code = HDL) 43 mg/dL triglyceride (test code = 86 mg/dL <150 triglyceride) VLDL (calculated) (test code = VLDL 17 mg/dL (calculated)) cholesterol/HDL ratio (test code = 3.4 mg/dL cholesterol/HDL ratio) non-HDL cholesterol (calculated) 102 mg/dL <160 (test code = non-HDL cholesterol (calculated)) cholesterol (test code = 145 mg/dL <200 cholesterol) Cholesterol in LDL [Mass/volume] in 85 mg/dL <130 Serum or Plasma (test code = 2089-1) [facility] [Units/volume] in Serum or [id number] 00:00:00 Test Item Value Reference Range Interpretation Comments TSH (test code = TSH) 2.764 uIU/mL 0.350-4.940 [facility], serum or [id number] 00:00:00 Test Item Value Reference Range Interpretation Comments PSA, total (test code = PSA, 1.14 NG/mL <4.00 total) [facility] A1[facility]/Hemoglobin.total in [id number] 00:00:00 Test Item Value Reference Range Interpretation Comments Hemoglobin A1c/Hemoglobin.total in 5.3 % 1.0-5.7 Blood (test code = 4548-4) average blood glucose (calculation) 105 mg/dL (test code = average blood glucose (calculation)) [facility] complete panel - [id number] 00:00:00 Test Item Value Reference Range Interpretation Comments color (test code = yellow yellow color) appearance (test code clear clear = appearance) specific gravity (test 1.018 1.001-1.035 code = specific gravity) pH (test code = pH) 6.0 5.0-8.0 glucose (test code = negative negative glucose) bilirubin (test code = negative negative bilirubin) ketones (test code = negative negative ketones) occult blood (test negative negative code = occult blood) protein (test code = negative negative protein) nitrite (test code = negative negative nitrite) leukocyte esterase negative negative (test code = leukocyte esterase) WBC (test code = WBC) none seen See_Comment [Auto mated message] The system Stad[employer] generated this result transmitted ref erence range: < or = 5 . The reference range was not used to int erpret this result as normal/abnormal . RBC (test code = RBC) none seen See_Comment [Auto mated message] The system Stad[employer] generated this result transmitted ref erence range: < or = 2 . The reference range was not used to int erpret this result as normal/abnormal . squamous epithelial none seen See_Comment [Automa godwin message] cells (test code = The syste m which squamous epithelial generate d this result cells) transmitted ref erence range: < or = 5 . The reference range was not used to int erpret this result as normal/abnormal . bacteria (test code = none seen none seen bacteria) hyaline cast (test none seen none seen code = hyaline cast) [facility] W Auto Differential panel - [id number] 00:00:00 Test Item Value Reference Range Interpretation Comments WBC (test code = WBC) 7.90 x10*3/?L 4.00-11.00 RBC (test code = RBC) 4.92 10*12/L 4.63-6.08 hemoglobin (test code = 14.90 g/dL 13.70-17.50 hemoglobin) hematocrit (test code = 45.4 % 40.1-51.0 hematocrit) MCV (test code = MCV) 92.3 fL 80.0-100.0 MCH (test code = MCH) 30.3 pg 25.7-32.2 MCHC (test code = MCHC) 32.8 g/dL 32.3-36.5 RDW-SD (test code = RDW-SD) 43.2 fL 35.1-43.9 platelet count (test code = 417.0 k/uL 150.0-400.0 H platelet count) MPV (test code = MPV) 8.8 fL 7.5-11.5 neut% (test code = neut%) 54.8 % 34.0-67.9 lymph% (test code = lymph%) 32.3 % 21.8-53.1 mon% (test code = mon%) 10.8 % 5.3-12.2 eos% (test code = eos%) 1.0 % 0.8-7.0 baso% (test code = baso%) 0.8 % 0.2-1.2 neut# (test code = neut#) 4.3 x10*3/?L 1.8-5.4 lymph# (test code = lymph#) 2.6 x10*3/?L 1.3-3.6 mon# (test code = mon#) 0.9 x10*3/?L 0.3-0.8 H eos# (test code = eos#) 0.08 x10*3/?L 0.04-0.54 baso# (test code = baso#) 0.06 x10*3/?L 0.01-0.08 [facility] - [facility] or Plasma 2021-02-26 00:00:00 Test Item Value Reference Range Interpretation Comments ALT (test code = ALT) 15 U/L 0-55 AST (test code = AST) 13 U/L 5-34 BUN (test code = BUN) 15.1 mg/dL 8.4-25.0 alk phos (test code = alk phos) 133 unit/L 40-150 glucose (test code = glucose) 86 mg/dL 70-99 albumin (test code = albumin) 3.8 g/dL 3.4-5.1 creatinine (test code = 0.78 mg/dL 0.72-1.25 creatinine) eGFR non- (test >60 code = eGFR non-) total bilirubin (test code = 0.5 mg/dL 0.2-1.2 total bilirubin) eGFR - (test >60 code = eGFR - ) sodium (test code = sodium) 140 mEq/L 135-145 potassium (test code = potassium) 4.3 mEq/L 3.5-5.3 chloride (test code = chloride) 104 mmol/L 98-110 total protein (test code = total 7.0 g/dL 6.1-8.2 protein) calcium (test code = calcium) 9.4 mg/dL 8.8-10.2 CO2 (test code = CO2) 27.3 mmol/L 20.0-32.0 anion gap (test code = anion gap) 9 calc [facility] - Serum or [id number] 00:00:00 Test Item Value Reference Range Interpretation Comments HDL (test code = HDL) 43 mg/dL triglyceride (test code = 86 mg/dL <150 triglyceride) VLDL (calculated) (test code = VLDL 17 mg/dL (calculated)) cholesterol/HDL ratio (test code = 3.4 mg/dL cholesterol/HDL ratio) non-HDL cholesterol (calculated) 102 mg/dL <160 (test code = non-HDL cholesterol (calculated)) cholesterol (test code = 145 mg/dL <200 cholesterol) Cholesterol in LDL [Mass/volume] in 85 mg/dL <130 Serum or Plasma (test code = 2089-1) [facility] [Units/volume] in Serum or [id number] 00:00:00 Test Item Value Reference Range Interpretation Comments TSH (test code = TSH) 2.764 uIU/mL 0.350-4.940 [facility], serum or [id number] 00:00:00 Test Item Value Reference Range Interpretation Comments PSA, total (test code = PSA, 1.14 NG/mL <4.00 total) [facility] A1[facility]/Hemoglobin.total in [id number] 00:00:00 Test Item Value Reference Range Interpretation Comments Hemoglobin A1c/Hemoglobin.total in 5.3 % 1.0-5.7 Blood (test code = 4548-4) average blood glucose (calculation) 105 mg/dL (test code = average blood glucose (calculation)) [facility] Ag [Presence] in Respiratory specimen by Rapid [id number] 15:31:00 Test Item Value Reference Range Interpretation Comments SARS-CoV-2 Antigen (test Presumptive Negative code = SARS-CoV-2 Antigen) [facility] Ag [Presence] in Respiratory specimen by Rapid [id number] 15:31:00 Test Item Value Reference Range Interpretation Comments SARS-CoV-2 Antigen (test Presumptive Negative code = SARS-CoV-2 Antigen) [facility] Ag [Presence] in Respiratory specimen by Rapid [id number] 15:31:00 Test Item Value Reference Range Interpretation Comments SARS-CoV-2 Antigen (test Presumptive Negative code = SARS-CoV-2 Antigen) [facility]
--- NOTE | 2022-08-28 10:56 | ER ---
Nurse's Notes [facility] Name: Jose Rivas Age: 66 yrs Sex: Male : 1955 Arrival Date: 08/28/2022 Time: 10:33 Bed 2 Private MD: Diagnosis: GI Bleed/ Gastrointestinal hemorrhage, unspecified-lower;Anemia, unspecified-acute blood loss;Syncope Near;Diverticulosis of large intestine without perforation or abscess with bleeding;Elevated white blood cell count Presentation: 08/28 10:36 Chief complaint: EMS states: rectal bleeding for the past week, had BMs on Monday, eh3 Monday, and today, all with large amount of bright red blood. EMS reports BP of 70/40 and weak gait on arrival, "seizure-like" symptoms in ambulance of slurred speech, nausea, and diaphoresis. EMS gave NS bolus and Zofran 4mg en route, seizure-like symptoms resolved before arrival to ED. Coronavirus screen: Vaccine status: Patient reports receiving the 2nd dose of the covid vaccine. Ebola Screen: No symptoms or risks identified at this time. Initial Sepsis Screen: Does the patient meet any 2 criteria? No. Patient's initial sepsis screen is negative. Does the patient have a suspected source of infection? No. Patient's initial sepsis screen is negative. Risk Assessment: Do you want to hurt yourself or someone else? Patient reports no desire to harm self or others. Onset of symptoms was August 28, 2022. 10:36 Method Of Arrival: EMS: [facility]3 10:36 Acuity: NAOMY 3 eh3 Triage Assessment: 10:39 General: Appears in no apparent distress. uncomfortable, Behavior is calm, cooperative, eh3 appropriate for age. Pain: Denies pain. Neuro: Level of Consciousness is awake, alert, obeys commands, Oriented to person, place, time, situation, [employer]ating Range Tender are equal bilaterally Speech is normal, Pupils are PERRLA. Cardiovascular: Capillary refill < 3 seconds Patient's skin is warm and dry. Respiratory: Airway is patent Respiratory effort is even, unlabored, Respiratory pattern is regular, symmetrical. GI: Abdomen is round non-distended, Reports rectal bleeding, bloody stool, nausea. Derm: Skin is pink, warm \\T\\ dry. Musculoskeletal: Circulation, motion, and sensation intact. Range of motion: intact in all extremities. Historical: - Allergies: 10:39 No Known Allergies; eh3 - Home Meds: 10:39 None [Active]; eh3 - PMHx: 10:39 Diverticulitis; eh3 - Immunization history:: Adult Immunizations up to date. - Social history:: Smoking status: Patient denies any tobacco usage or history of. Patient uses alcohol, occasionally. Screenin:41 [facility] ED Fall Risk Assessment (Adult) Score/Fall Risk Level 0 - 2 = Low Risk. Abuse eh3 screen: Denies threats or abuse. Denies injuries from another. Nutritional screening: No deficits noted. Tuberculosis screening: No symptoms or risk factors identified. Assessment: 10:41 Reassessment: No changes from previously documented assessment. See triage assessment. 3 11:30 Reassessment: Patient appears in no apparent distress at this time. Patient and/or 3 family updated on plan of care and expected duration. Pain level reassessed. Patient is alert, oriented x 3, equal unlabored respirations, skin warm/dry/pink. 12:00 Reassessment: Patient appears in no apparent distress at this time. Patient and/or 3 family updated on plan of care and expected duration. Pain level reassessed. Patient is alert, oriented x 3, equal unlabored respirations, skin warm/dry/pink. 13:00 Reassessment: Blood transfusion started at 1245, see Transfusion Record for additional [facility] documentation. 14:00 Reassessment: Patient appears in no apparent distress at this time. Patient and/or 3 family updated on plan of care and expected duration. Pain level reassessed. Patient is alert, oriented x 3, equal unlabored respirations, skin warm/dry/pink. Vital Signs: 10:36 BP 119 / 59; Pulse 74; Resp 18; Temp 98.2(O); Pulse Ox 100% ; Weight 77.11 kg; Height 5 eh3 ft. 8 in. ; Pain 3/10; 11:30 BP 111 / 63; Pulse 61; Resp 18; Pulse Ox 100% on R/A; eh3 12:00 BP 117 / 54; Pulse 69; Resp 18; Pulse Ox 100% on R/A; eh3 13:00 BP 103 / 54; Pulse 60; Resp 14; Temp 98.4(O); Pulse Ox 100% on R/A; eh3 14:00 BP 109 / 58; Pulse 61; Resp 15; Temp 98(O); Pulse Ox 100% ; eh3 10:36 Body Mass Index 25.85 (77.11 kg, 172.72 cm) eh3 10:36 Pain Scale: Adult eh3 NIH Stroke Scale Scores: 11:19 NIHSS Score: 0 [facility] ED Course: 10:36 Patient arrived in ED. eh3 10:38 Mark Smith MD is Attending Physician. [facility] 10:39 Triage completed. eh3 10:39 Arm band placed on. eh3 10:41 Patient has correct armband on for positive identification. Placed in gown. Bed in low eh3 position. Call light in reach. Side rails up X2. Adult w/ patient. Client placed on continuous cardiac and pulse oximetry monitoring. NIBP monitoring applied. Warm blanket given. 10:41 Maintain EMS IV. Dressing intact. Good blood return noted. Site clean \\T\\ dry. Gauge \\T\\ eh 3 site: 20g LAC. 10:48 initiated a transfer with Saad from the [facility]. eb 11:01 Sherrie English, RN is Primary Nurse. eh3 11:05 Inserted saline lock: 22 gauge in left antecubital area, using aseptic technique. Blood eh3 collected. 11:16 Chest Single View In Process Unspecified. EDMS 12:27 Saad from the [facility] called to let us know he is still waiting for eb his doctors to call him back so they can do doc to doc. 12:28 administrative approval given by Cole Joshi/ patient has been [facility] Dr. Marty Nair has accepted the patient in transfer/ report to be called to [phone]. 12:30 connected the hospitalist textile conversion manager for [facility] with Luis Jeffers for patient eb transfer consultation. 13:28 No provider procedures requiring assistance completed. Patient transferred, IV remains eh3 in place. Administered Medications: 11:25 Drug: Piperacillin-Tazobactam IVPB 3.375 grams Route: IVPB; Infused Over: 60 mins; eh3 Site: left antecubital; 12:30 Follow up: Response: No adverse reaction; IV Status: Completed infusion; IV Intake: eh3 100ml 11:25 Drug: NS 0.9% IV 1000 ml Route: IV; Rate: 1 bolus; Site: left antecubital; 3 12:30 Follow up: IV Status: Completed infusion; IV Intake: 1000ml 3 11:25 Drug: Famotidine IVP 20 mg Route: IVP; Site: left antecubital; 3 12:30 Follow up: Response: No adverse reaction 3 Medication: 13:29 VIS not applicable for this client. eh3 Intake: 12:30 IV: 1000ml; Total: 1000ml. eh3 12:30 IV: 100ml; Total: 1100ml. 3 Outcome: 10:55 ER care complete, transfer ordered by . sarika 14:18 Patient left the ED. 3 14:18 Transferred by ground EMS to [facility], Transfer form completed. 3 14:18 Condition: stable 14:18 Instructed on the need for transfer. NIH Stroke Scale - NIH Stroke Score Date: 08/28/2022 Time: 11:19 Total Score = 0 10. Dysarthria (speech clarity - read or repeat words) - 0(Normal) 11. Extinction and Inattention (visual/tactile/auditory/spatial/personal) - 0(No abnormality) 1a. Level of Consciousness (LOC) - 0(Alert) 1b. Level of Consciousness (LOC) (Month \\T\\ Age) - 0(Both) 1c. LOC Commands (Open \\T\\ Closes Eyes/Computer Trainer) - 0(Both) 2. Best Gaze (Lateral Gaze Paresis) - 0(Normal) 3. Visual Field Loss - 0(No visual loss) 4. Facial Palsy - 0(Normal) 5a. Left Arm: Motor (10-second hold) - 0(No drift) 5b. Right Arm: Motor (10-second hold) - 0(No drift) 6a. Left Leg: Motor (5-second hold - always test supine) - 0(No drift) 6b. Right Leg: Motor (5-second hold - always test supine) - 0(No drift) 7. Limb Ataxia (finger/nose \\T\\ heel/oden - test with eyes open) - 0(Absent) 8. Sensory Loss (pinprick arms/legs/face) - 0(Normal) 9. Best Language: Aphasia (description/naming/reading) - 0(No aphasia) Initials: sarika Signatures: Dispatcher [employer] EDMark Landis, MD MD sarika Villavicencio, Jodie eb English, Sherrie, RN RN eh3 Corrections: (The following items were deleted from the chart) 14:20 13:00 BP 103 / 54; Pulse 60bpm; Resp 14bpm; Pulse Ox 100% RA; eh3 eh3
--- NOTE | 2022-08-28 10:56 | EDPHYS ---
Physician Documentation [facility] Name: Jose Rivas Age: 66 yrs Sex: Male : 1955 Arrival Date: 08/28/2022 Time: 10:33 Bed 2 Private MD: ED Physician Mark Smith HPI: 08/28 10:47 This 66 yrs old Male presents to ER via EMS with complaints of Rectal sarika Bleeding. 10:47 The patient presents to the emergency department with bleeding from the rectum/anus, sarika that is moderate. Onset: The symptoms/episode began/occurred 2 day(s) ago. Context: the patient has no known special context relating to the rectal area complaint(s). Modifying factors: The symptoms are alleviated by nothing, The symptoms are aggravated by bowel movement, movement. Associate signs and symptoms: Pertinent positives: lower GI bleeding, bright red. The patient has experienced similar episodes in the past, several times. Historical: - Allergies: 10:39 No Known Allergies; eh3 - Home Meds: 10:39 None [Active]; eh3 - PMHx: 10:39 Diverticulitis; eh3 - Immunization history:: Adult Immunizations up to date. - Social history:: Smoking status: Patient denies any tobacco usage or history of. Patient uses alcohol, occasionally. ROS: 10:48 Constitutional: Negative for fever, chills, and weight loss, Eyes: Negative for injury, sarika pain, redness, and discharge, ENT: Negative for injury, pain, and discharge, Neck: Negative for injury, pain, and swelling, Cardiovascular: Negative for chest pain, palpitations, and edema, Respiratory: Negative for shortness of breath, cough, wheezing, and pleuritic chest pain, Back: Negative for injury and pain, : Negative for injury, bleeding, discharge, and swelling, MS/Extremity: Negative for injury and deformity, Skin: Negative for injury, rash, and discoloration, Neuro: Negative for headache, weakness, numbness, tingling, and seizure. 10:48 Abdomen/GI: Positive for rectal bleeding. 10:48 Neuro: Positive for syncope, near syncope, weakness. Exam: 10:48 Constitutional: This is a well developed, well nourished patient who is awake, alert, sarika and in no acute distress. Head/Face: Normocephalic, atraumatic. Eyes: Pupils equal round and reactive to light, extra-ocular motions intact. Lids and lashes normal. Conjunctiva and sclera are non-icteric and not injected. Cornea within normal limits. Periorbital areas with no swelling, redness, or edema. ENT: Nares patent. No nasal discharge, no septal abnormalities noted. Tympanic membranes are normal and external auditory canals are clear. Oropharynx with no redness, swelling, or masses, exudates, or evidence of obstruction, uvula midline. Mucous membranes moist. Neck: Trachea midline, no thyromegaly or masses palpated, and no cervical lymphadenopathy. Supple, full range of motion without nuchal rigidity, or vertebral point tenderness. No Meningismus. Chest/axilla: Normal chest wall appearance and motion. Nontender with no deformity. No lesions are appreciated. Cardiovascular: Regular rate and rhythm with a normal S1 and S2. No gallops, murmurs, or rubs. Normal PMI, no JVD. No pulse deficits. Respiratory: Lungs have equal breath sounds bilaterally, clear to auscultation and percussion. No rales, rhonchi or wheezes noted. No increased work of breathing, no retractions or nasal flaring. Back: No spinal tenderness. No costovertebral tenderness. Full range of motion. Male : Normal genitalia with no discharge or lesions. MS/ Extremity: Pulses equal, no cyanosis. Neurovascular intact. Full, normal range of motion. Neuro: Awake and alert, GCS 15, oriented to person, place, time, and situation. Cranial nerves II-XII grossly intact. Motor strength 5/5 in all extremities. Sensory grossly intact. Cerebellar exam normal. Normal gait. Psych: Awake, alert, with orientation to person, place and time. Behavior, mood, and affect are within normal limits. 10:48 Abdomen/GI: Inspection: abdomen appears normal, Bowel sounds: normal, Palpation: nontender, Rectal exam: Prostate: normal, rectal tone normal, Stool: grossly bloody, guaiac positive, hemorrhoid(s), are not appreciated, mass, is not appreciated, swelling, is not appreciated, tenderness, is not appreciated, Liver: no appreciated palpable abnormalities, Hernia: not appreciated. 11:19 ECG was reviewed by the Attending Physician. [facility] Vital Signs: 10:36 BP 119 / 59; Pulse 74; Resp 18; Temp 98.2(O); Pulse Ox 100% ; Weight 77.11 kg; Height 5 eh3 ft. 8 in. ; Pain 3/10; 11:30 BP 111 / 63; Pulse 61; Resp 18; Pulse Ox 100% on R/A; eh3 12:00 BP 117 / 54; Pulse 69; Resp 18; Pulse Ox 100% on R/A; eh3 13:00 BP 103 / 54; Pulse 60; Resp 14; Temp 98.4(O); Pulse Ox 100% on R/A; eh3 14:00 BP 109 / 58; Pulse 61; Resp 15; Temp 98(O); Pulse Ox 100% ; eh3 10:36 Body Mass Index 25.85 (77.11 kg, 172.72 cm) 3 10:36 Pain Scale: Adult 3 NIH Stroke Scale Scores: 11:19 NIHSS Score: 0 sarika MDM: 10:38 Patient medically screened. sarika 10:52 Differential Diagnosis: GI bleed, vasovagal episode. Data reviewed: vital signs, nurses sarika notes, EMS record, lab test result(s), EKG, radiologic studies, plain films. Consideration of Admission/Observation Escalation of care including admission/observation considered. I considered the following discharge prescriptions or medication management in the emergency department Medications were administered in the Emergency Department. See MAR. Test considered but Not performed: CT: no ct abd/pelvis. Care significantly affected by the following chronic conditions: diverticulitis/osis. Counseling: I had a detailed discussion with the patient and/or guardian regarding: the historical points, exam findings, and any diagnostic results supporting the discharge/admit diagnosis, lab results, radiology results, the need to transfer to another facility, for higher level of care, [facility] does not immediately have the required specialist. 08/28 10:46 Order name: Basic Metabolic Panel; Complete Time: 11:57 [facility] 08/28 10:46 Order name: CBC with Diff; Complete Time: 11:57 [facility] 08/28 10:46 Order name: LFT's; Complete Time: 11:57 [facility] 08/28 10:46 Order name: Magnesium; Complete Time: 11:57 [facility] 08/28 10:46 Order name: NT PRO-BNP; Complete Time: 11:57 [facility] 08/28 10:46 Order name: PT-INR; Complete Time: 11:57 [facility] 08/28 10:46 Order name: Troponin HS; Complete Time: 11:57 [facility] 08/28 10:46 Order name: Lipase; Complete Time: 11:57 [facility] 08/28 10:46 Order name: Type And Screen [facility] 08/28 11:12 Order name: Type and Screen [facility] 08/28 11:46 Order name: Packed RBC Leukored [facility] 08/28 12:09 Order name: ABO/RH no charge; Complete Time: 12:31 [facility] 08/28 11:00 Order name: Chest Single View; Complete Time: 11:57 [facility] 08/28 10:46 Order name: EKG; Complete Time: 11:20 [facility] 08/28 10:46 Order name: Cardiac monitoring; Complete Time: 10:52 [facility] 08/28 10:46 Order name: EKG - Nurse/Tech; Complete Time: 10:52 [facility] 08/28 10:46 Order name: IV Saline Lock; Complete Time: 11:01 [facility] 08/28 10:46 Order name: Labs collected and sent; Complete Time: 11:34 [facility] 08/28 10:46 Order name: O2 Per Protocol; Complete Time: 11: [facility] 08/28 10:46 Order name: O2 Sat Monitoring; Complete Time: 11: [facility] 08/28 10:46 Order name: IV - Large Bore; Complete Time: 11: [facility] 08/28 10:46 Order name: Misc. Order: strict bedrest; Complete Time: 11:01 [facility] 08/28 10:46 Order name: Transfuse; Complete Time: 13:28 [facility] EC:19 Rate is 60 beats/min. Rhythm is regular. QRS [place] is Normal. IN interval is normal. QRS sarika interval is normal. QT interval is normal. No Q waves. T waves are Normal. No ST changes noted. Clinical impression: Normal ECG and No evidence of ischemia. Interpreted by me. Reviewed by me. Administered Medications: 11:25 Drug: Piperacillin-Tazobactam IVPB 3.375 grams Route: IVPB; Infused Over: 60 mins; eh3 Site: left antecubital; 12:30 Follow up: Response: No adverse reaction; IV Status: Completed infusion; IV Intake: eh3 100ml 11:25 Drug: NS 0.9% IV 1000 ml Route: IV; Rate: 1 bolus; Site: left antecubital; eh3 12:30 Follow up: IV Status: Completed infusion; IV Intake: 1000ml [facility] 11:25 Drug: Famotidine IVP 20 mg Route: IVP; Site: left antecubital; [facility] 12:30 Follow up: Response: No adverse reaction [facility] Disposition Summary: 08/28/22 10:55 Transfer Ordered Transfer Location: [facility] sarika Reason: Higher level of care sarika Condition: Fair sarika Problem: new sarika Symptoms: have improved sarika Accepting Physician: to restoration(08/28/22 14:18) [facility] Diagnosis - GI Bleed/ Gastrointestinal hemorrhage, unspecified - lower sarika - Anemia, unspecified - acute blood loss sarika - Syncope Near sarika - Diverticulosis of large intestine without perforation or abscess with bleeding sarika - Elevated white blood cell count sarika Forms: - Medication Reconciliation Form sarika - SBAR form sarika NIH Stroke Scale - NIH Stroke Score Date: 08/28/2022 Time: 11:19 Total Score = 0 10. Dysarthria (speech clarity - read or repeat words) - 0(Normal) 11. Extinction and Inattention (visual/tactile/auditory/spatial/personal) - 0(No abnormality) 1a. Level of Consciousness (LOC) - 0(Alert) 1b. Level of Consciousness (LOC) (Month \T\ Age) - 0(Both) 1c. LOC Commands (Open \T\ Closes Eyes/Health And Social Care Teacher) - 0(Both) 2. Best Gaze (Lateral Gaze Paresis) - 0(Normal) 3. Visual Field Loss - 0(No visual loss) 4. Facial Palsy - 0(Normal) 5a. Left Arm: Motor (10-second hold) - 0(No drift) 5b. Right Arm: Motor (10-second hold) - 0(No drift) 6a. Left Leg: Motor (5-second hold - always test supine) - 0(No drift) 6b. Right Leg: Motor (5-second hold - always test supine) - 0(No drift) 7. Limb Ataxia (finger/nose \T\ heel/oden - test with eyes open) - 0(Absent) 8. Sensory Loss (pinprick arms/legs/face) - 0(Normal) 9. Best Language: Aphasia (description/naming/reading) - 0(No aphasia) Initials: sarika Signatures: Dispatcher [employer] EDMS Mark Smith MD MD cha Hall, Erin, RN RN eh3 Corrections: (The following items were deleted from the chart) : 11:20 Chest Single View+RAD.RAD.[email or web address] ordered. EDMS EDMS 12:32 10:55 to lisa baum cha 14:18 12:32 to lisa baum 3
[2022-08-28] MEDS ORDERED: NA CHLORIDE 0.9% 1,000 ML ONE (11:30)
[2022-08-28] MEDS ORDERED: NA CHLORIDE 0.9% 100 ML ONE (11:30)
[2022-08-28] MEDS ORDERED: PIPERACIL/TAZO 3.375 GM VIAL IV ONE (11:30)
[2022-08-28] MEDS ORDERED: FAMOTIDINE 20 MG/2 ML VIAL IV ONE (11:30)
[2022-08-28 11:31] LABS: Absolute Lymphocytes (CBC) 2.1 K/uL (0.7-4.9); Hematocrit 22.3 % (39.6-49.0); Lymphocytes % 17.1 % (15.3-44.8); MCV 91.5 fL (80-100); MPV 6.7 fL (7.6-11.3); RBC Red Blood Cell Count 2.44 M/uL (4.33-5.43)
[2022-08-28 11:35] LABS: Protime INR 1.27
[2022-08-28 11:54] LABS: Albumin 2.4 g/dL (3.4-5.0); Bilirubin Direct 0.1 mg/dL (0-0.2); Bilirubin Indirect, Calculated 0.3 mg/dL (0.2-0.8); Bilirubin Total 0.4 mg/dL (0.2-1.0); Magnesium 1.7 mg/dL (1.6-2.4); Potassium 3.9 mEq/L (3.5-5.1); Protein, Total 4.9 g/dL (6.4-8.2); Troponin High Sensitivity 4.5 pg/mL (<58.9)
--- NOTE | 2022-08-28 11:55 | RAD REPORT ---
EXAM DESCRIPTION: Suha Single View08/28/2022 11:14 am CLINICAL HISTORY: rectal bleeding COMPARISON: No comparisons TECHNIQUE: Portable AP view of the chest. FINDINGS: The lungs are clear. No pneumothorax or effusion. The cardiomediastinal contours are unre markable. IMPRESSION: No acute cardiopulmonary process.
[2022-08-28] MEDS ORDERED: NA CHLORIDE 0.9% 250 ML ONE (12:24)
[2022-08-28] MEDS ORDERED: NA CHLORIDE 0.9% 500 ML ONE (14:21)
[2022-08-28 14:41] VITALS: O2SAT 100
[2022-08-28 15:01] VITALS: BP 103/54
--- NOTE | 2022-08-29 17:13 | EKG ---
Test Date: 2022-08-28 Test Time: 11:04:49 [facility] Specialist: BULMARO MEASUREMENT RESULTS: Intervals: Rate: 60 RI: 188 QRSD: 76 QT: 426 QTc: 426 [place]: P: 55 RI: 188 QRS: 60 T: 49 INTERPRETIVE STATEMENTS: Normal sinus rhythm Normal ECG No previous ECG available for comparison Electronically Signed On 08-29-22 17:11:03 CDT by Jevon Chaudhry
== END 2022-08-28 14:18 | disposition short-term general hospital (02) ==
LOC: ER 10:33
PROC: 30233N1 Transfusion of Nonautologous Red Blood Cells into Peripheral Vein, Percutaneous Approach (ICD-10-PCS; principal; 2022-08-28)
DX: D62 Acute posthemorrhagic anemia (principal); K57.31 Diverticulosis of large intestine without perforation or abscess with bleeding; D72.829 Elevated white blood cell count, unspecified; R55 Syncope and collapse
CPT/HCPCS: 96365; 93005; 85025; 80048; 36415; 86900; 83735; 86850; 85610; 86901; 80076; 86920 ×2; 84484; 83690; 83880; 71045; 96375; 99285; 36430; J2543; P9016; J7050; J7040; J7030